=== PATIENT | female | born 1980 | race Caucasian/White ===

== ENCOUNTER 2017-05-02 12:20 | Emergency (ER) | payer OTHER ==
[~2017-05-02] VITALS: Ht 152.4 cm; Wt 58.6 kg
[2017-05-02 12:45] LABS: HEMATOCRIT 42.7 % (36.0-46.0); HEMOGLOBIN 14.2 G/DL (11.9-15.5); MCH 28.6 PG (29.0-34.0); MCHC 33.3 G/DL (30.0-36.0); MCV 85.9 FL (83-99); RBC DIS.WIDTH-CV 14.1 % (11.8-14.6); RBC DIS.WIDTH-SD 44.7 % (39-53); RED BLOOD COUNT 4.97 M/uL (3.80-5.20); WHITE BLOOD COUNT 8.3 K/uL (4.1-10.2)
[2017-05-02 12:53] LABS: ALBUMIN 4.3 g/dL (3.2-4.8); CHLORIDE 103 mEq/L (99-109); SODIUM 140 mEq/L (136-147)
[2017-05-02 12:55] LABS: GLUCOSE 93 mg/dL (70-99)
[2017-05-02 12:57] LABS: TOTAL BILIRUBIN 0.5 mg/dL (0.0-1.0)
[2017-05-02 12:59] LABS: ALKALINE PHOSPHATASE 161 IU/L (3-129); CREATININE 0.8 mg/dL (0.6-1.3)
[2017-05-02 13:00] LABS: UREA NITROGEN (BUN) 9 mg/dL (9-23)
[2017-05-02 13:01] LABS: AST (GOT) 26 IU/L (2-34); GFR ESTIMATE (CALCULATED) > 59 mL/min/
[2017-05-02 13:02] LABS: ALT (GPT) 35 IU/L (3-49)
[2017-05-02 13:07] LABS: LIPASE 54 U/L (1.0-51.0)
[2017-05-02 13:09] LABS: QUANTITATIVE HCG < 4.0 MIU/ML
[2017-05-02 13:26] LABS: APPEARANCE SL.HAZY ((CLEAR)); BILIRUBIN NEGATIVE; BLOOD LARGE; COLOR AMBER ((YELLOW)); GLUCOSE (STRIP) NEGATIVE; KETONES NEGATIVE; LEUKOCYTES NEGATIVE; NITRITE NEGATIVE; PROTEIN (STRIP) 100; SPECIFIC GRAVITY 1.023 (1.000-1.030); UROBILINOGEN 0.2 MG/DL (0.2-1.0)
[2017-05-02 13:32] LABS: PLAT.SUFFICIENCY ADEQUATE; PLATELET COUNT 325 K/uL (156-360)
[2017-05-02 13:39] LABS: BACTERIA RARE /HPF; EPITHELIAL CELLS RARE /HPF; MUCUS NONE SEEN /LPF; RED BLOOD CELLS TNTC /HPF (0-5); WHITE BLOOD CELLS RARE /HPF (0-5)
[2017-05-02] MEDS ORDERED: CITRATE OF MAG296 ML PO (15:23)
[2017-05-02 15:55] VITALS: BP 118/86
== END 2017-05-02 15:56 | disposition home or self-care (01) ==
LOC: EME 12:20
PROVIDERS: Nurse Practitioner Family
DX: R10.9 Unspecified abdominal pain (principal); K59.00 Constipation, unspecified; N28.89 Other specified disorders of kidney and ureter; R91.1 Solitary pulmonary nodule; R74.8 Abnormal levels of other serum enzymes; F17.200 Nicotine dependence, unspecified, uncomplicated; Z87.442 Personal history of urinary calculi; K21.9 Gastro-esophageal reflux disease without esophagitis; E05.00 Thyrotoxicosis with diffuse goiter without thyrotoxic crisis or storm; Z88.0 Allergy status to penicillin
CPT/HCPCS: 71046; 74176; 80053; 81003; 83690; 84702; 85027; 99281; 99283; J1885